=== PATIENT | male | born 1965 | race Caucasian/White ===

== ENCOUNTER 2019-11-04 14:13 | Emergency (ER) | payer BC, OTHER ==
[~2019-11-04] VITALS: Ht 182 cm; Wt 77.2 kg
[2019-11-04] MEDS ORDERED: LIDOCAINE UROJET 2% GEL 10 ML PKG ONE (14:30)
--- NOTE | 2019-11-04 14:41 | ED GU-Female ---
General Chief Complaint: - Urinary Stated Complaint: TROUBLE URINATING Nursing Triage Note: SENT OUT HERE BY THE COMPANY DR GRAYSON TO PT HAVING TROUBLE PEEING FOR OVER A MONTH ALONG WITH N/V. PT STATES HE NEVER GOES TO THE DR SO HE HAS NO PAST MEDICAL HISTORY. Nursing Sepsis Screen: No Definite Risk Source: patient Exam Limitations: no limitations History of Present Illness Date Seen by Provider: Nov 04, 2019 Time Seen by Provider: 14:38 Initial Comments To ER per private vehicle from [facility] urgent care, he was at work at [employer] seeing their mobile van with reports of lower abdominal pain. He's had lower abdominal pain for about 6 months, worse since September. He frequently is awake at night to urinate, has had some urinary incontinence after he feels as though he is finished urinating. He's also had some intermittent vomiting. He denies any upper abdominal pain. He was noted to have a distended lower abdomen concern for urinary retention. Timing/Duration: constant Severity/Quality: moderate Location: suprapubic Radiation: none Activities at Onset: none Prior Genitourinary Problems: none Associated Symptoms: nausea/vomiting, urinary frequency Allergies and Home Medications Allergies Coded Allergies: No Known Drug Allergies (Unverified , 11/04/19) Home Medications No Active Prescriptions or Reported Meds Patient Home Medication List Home Medication List Reviewed: Yes Review of Systems Review of Systems Constitutional: see HPI EENTM: see HPI Respiratory: no symptoms reported Cardiovascular: no symptoms reported Genitourinary: see HPI Musculoskeletal: no symptoms reported Skin: no symptoms reported Psychiatric/Neurological: No Symptoms Reported Endocrine: No Symptoms Reported Hematologic/Lymphatic: No Symptoms Reported Past Zigfadr-Xrzkni-Mfienk Hx Patient Social History Alcohol Use: Occasionally Uses Recreational Drug Use: Yes Drug of Choice: POT Smoking Status: Current Everyday Smoker Recent Foreign Travel: No Contact w/Someone Who Travel: No Recent Infectious Disease Expo: No Recent Hopitalizations: No Seasonal Allergies Seasonal Allergies: No Past Medical History Surgeries: No Respiratory: No Cardiac: No Neurological: No Genitourinary: No Gastrointestinal: No Musculoskeletal: Yes Fractures Endocrine: No HEENT: No Cancer: No Psychosocial: No Integumentary: No Physical Exam Vital Signs Vital Signs - First Documented 11/04/19 14:21 Temp 36.5 Pulse 83 Resp 16 B/P (MAP) 170/85 (113) Pulse Ox 98 O2 Delivery Room Air Capillary Refill : Less Than 3 Seconds Height, Weight, BMI Height: '" Weight: lbs. oz. kg; 23.00 BMI Method: General Appearance: WD/WN, no apparent distress HEENT: PERRL/EOMI, normal ENT inspection Neck: non-tender, full range of motion Respiratory: no respiratory distress, no accessory muscle use Gastrointestinal: normal bowel sounds, soft, other (suprapubic distention tenderness to palpation.) Extremities: normal range of motion, non-tender Neurologic/Psychiatric: alert, normal mood/affect, oriented x 3 Progress/Results/Core Measures Suspected Sepsis Recent Fever Within 48 Hours: No Infection Criteria Present: Suspected New Infection New/Unexplained Altered Menta: No Sepsis Screen: No Definite Risk SIRS Temperature: Pulse: 83 Respiratory Rate: 16 Laboratory Tests 11/04/19 14:44: White Blood Count 11.5H Blood Pressure 170 /85 Mean: 113 Laboratory Tests 11/04/19 14:44: Creatinine 3.76H, INR Comment 0.9, Platelet Count 278, Total Bilirubin 0.4 Results/Orders Lab Results Laboratory Tests Test 11/04/19 14:44 11/04/19 15:06 Range/Units White Blood Count 11.5 H 4.3-11.0 10^3/uL Red Blood Count 3.66 L 4.35-5.85 10^6/uL Hemoglobin 11.2 L 13.3-17.7 G/DL Hematocrit 34 L 40-54 % Mean Corpuscular Volume 92 80-99 FL Mean Corpuscular Hemoglobin 31 25-34 PG Mean Corpuscular Hemoglobin Concent 33 32-36 G/DL Red Cell Distribution Width 12.9 10.0-14.5 % Platelet Count 278 130-400 10^3/uL Mean Platelet Volume 9.4 7.4-10.4 FL Neutrophils (%) (Auto) 76 H 42-75 % Lymphocytes (%) (Auto) 13 12-44 % Monocytes (%) (Auto) 10 0-12 % Eosinophils (%) (Auto) 1 0-10 % Basophils (%) (Auto) 0 0-10 % Neutrophils # (Auto) 8.8 H 1.8-7.8 X 10^3 Lymphocytes # (Auto) 1.5 1.0-4.0 X 10^3 Monocytes # (Auto) 1.2 H 0.0-1.0 X 10^3 Eosinophils # (Auto) 0.1 0.0-0.3 10^3/uL Basophils # (Auto) 0.0 0.0-0.1 10^3/uL Prothrombin Time 13.0 12.2-14.7 SEC INR Comment 0.9 0.8-1.4 Sodium Level 138 135-145 MMOL/L Potassium Level 4.2 3.6-5.0 MMOL/L Chloride Level 104 98-107 MMOL/L Carbon Dioxide Level 22 21-32 MMOL/L Anion Gap 12 5-14 MMOL/L Blood Urea Nitrogen 36 H 7-18 MG/DL Creatinine 3.76 H 0.60-1.30 MG/DL Estimat Glomerular Filtration Rate 17 BUN/Creatinine Ratio 10 Glucose Level 99 70-105 MG/DL Calcium Level 9.2 8.5-10.1 MG/DL Corrected Calcium 9.0 8.5-10.1 MG/DL Total Bilirubin 0.4 0.1-1.0 MG/DL Aspartate Amino Transf (AST/SGOT) 13 5-34 U/L Alanine Aminotransferase (ALT/SGPT) 8 0-55 U/L Alkaline Phosphatase 73 40-136 U/L Total Protein 7.1 6.4-8.2 GM/DL Albumin 4.3 3.2-4.5 GM/DL Urine Color YELLOW Urine Clarity CLEAR Urine pH 5.5 5-9 Urine Specific Henderson <=1.005 1.016-1.022 Urine Protein NEGATIVE NEGATIVE Urine Glucose (UA) NEGATIVE NEGATIVE Urine Ketones NEGATIVE NEGATIVE Urine Nitrite NEGATIVE NEGATIVE Urine Bilirubin NEGATIVE NEGATIVE Urine Urobilinogen 0.2 < = 1.0 MG/DL Urine Leukocyte Esterase NEGATIVE NEGATIVE Urine RBC (Auto) NEGATIVE NEGATIVE Urine RBC NONE /HPF Urine WBC NONE /HPF Urine Squamous Epithelial Cells NONE /HPF Urine Crystals NONE /LPF Urine Bacteria NEGATIVE /HPF Urine Casts NONE /LPF Urine Mucus NEGATIVE /LPF Urine Culture Indicated NO My Orders Orders - PIEDAD HOYOS APRN Lidocaine 2% (Urojet) (Xylocaine Urojet) (11/04/19 14:30) Ua Culture If Indicated (11/04/19 14:36) Cbc With Automated Diff (11/04/19 14:36) Comprehensive Metabolic Panel (11/04/19 14:36) Protime With Inr (11/04/19 14:36) Ed Iv/Invasive Line Start (11/04/19 14:36) Lorazepam Injection (Ativan Injection) (11/04/19 14:45) Lidocaine 2% (Urojet) (Xylocaine Urojet) (11/04/19 14:45) Guzman Cath (11/04/19 14:36) Iohexol Injection (Omnipaque 350 Mg/Ml 1 (11/04/19 15:30) Received Contrast (Hold Metformin- Contr (11/04/19 15:30) Ct Abd/Pelvis Wo(Kidney Stone) (11/04/19 15:20) Medications Given in ED Current Medications Medications Dose Ordered Sig/Angelina Route Start Time Stop Time Status Last Admin Dose Admin Lidocaine HCl 10 ml ONCE ONCE TOP 11/04/19 14:45 11/04/19 14:46 DC 11/04/19 14:47 10 ML Lorazepam 0.25 mg ONCE PRN IVP 11/04/19 14:45 11/04/19 14:51 0.25 MG Vital Signs/I&O 11/04/19 14:21 Temp 36.5 Pulse 83 Resp 16 B/P (MAP) 170/85 (113) Pulse Ox 98 O2 Delivery Room Air Capillary Refill : Less Than 3 Seconds Blood Pressure Mean: 113 Departure Communication (Admissions) 2500 cc of clear yellow urine was removed from the bladder after catheter insertion 1550-discussed with Dr. Mcadams, recommends Gatorade for hydration as he may experience some diaphoresis this point. Watch for hematuria and return to ER for that. Leave the catheter in place and follow up with Dr. Mcadams tomorrow 11:15 AM. Impression Primary Impression: Urinary retention Additional Impression: Renal failure Qualified Codes: N19 - Unspecified kidney failure Disposition: HOME, SELF-CARE Condition: Stable Departure-Patient Inst. Decision time for Depature: 15:36 Referrals: NO,LOCAL PHYSICIAN (PCP) Primary Care Physician MADIE MCADAMS MD Patient Instructions: Urinary Retention Add. Discharge Instructions: 1. Leave the catheter in place. Draining this as we have shown how to whenever he gets full. Drink Gatorade in the meantime to help maintain your electrolytes. Try to get at least 2 bottles in tonight. If you notice any obviously bloody ur ine. Need to return to the emergency room. Otherwise plan on seeing Dr. Mcadams tomorrow at 11:15 AM. All discharge instructions reviewed with patient and/or family. Voiced understanding. Scripts No Active Prescriptions or Reported Meds Copy Copies To 1: MADIE MCADAMS MD, PETER J APRN Nov 04, 2019 14:41
[2019-11-04] MEDS ORDERED: LIDOCAINE UROJET 2% GEL 10 ML PKG TOP ONE (14:45)
[2019-11-04] MEDS ORDERED: LORazepam INJ 2 MG/ML (ATIVAN) VIAL IVP PRN (14:45)
[2019-11-04 14:53] LABS: BASOPHILS % (AUTO) 0 % (0-10); EOSINOPHILS # (AUTO) 0.1 10^3/uL (0.0-0.3); EOSINOPHILS % (AUTO) 1 % (0-10); HEMATOCRIT 34 % (40-54); HEMOGLOBIN 11.2 G/DL (13.3-17.7); LYMPHOCYTES # (AUTO) 1.5 X 10^3 (1.0-4.0); LYMPHOCYTES % (AUTO) 13 % (12-44); MEAN CORPUSCULAR HEMOGLOBIN 31 PG (25-34); MEAN CORPUSCULAR HGB CONC 33 G/DL (32-36); MEAN CORPUSCULAR VOLUME 92 FL (80-99); MEAN PLATELET VOLUME 9.4 FL (7.4-10.4); MONOCYTES # (AUTO) 1.2 X 10^3 (0.0-1.0); MONOCYTES % (AUTO) 10 % (0-12); NEUTROPHILS # (AUTO) 8.8 X 10^3 (1.8-7.8); NEUTROPHILS % (AUTO) 76 % (42-75); PLATELET COUNT 278 10^3/uL (130-400); RED CELL DISTRIBUTION WIDTH 12.9 % (10.0-14.5); WHITE BLOOD COUNT 11.5 10^3/uL (4.3-11.0)
[2019-11-04 15:11] LABS: INR 0.9 (0.8-1.4)
[2019-11-04 15:18] LABS: BILIRUBIN,URINE NEGATIVE (NEGATIVE); CLARITY,URINE CLEAR; COLOR,URINE YELLOW; GLUCOSE, URINE (UA) NEGATIVE (NEGATIVE); KETONES,URINE NEGATIVE (NEGATIVE); LEUKOCYTE ESTERASE ,URINE NEGATIVE (NEGATIVE); NITRITE,URINE NEGATIVE (NEGATIVE); PH,URINE 5.5 (5-9); PROTEIN,URINE NEGATIVE (NEGATIVE)
[2019-11-04 15:18] LABS: ALBUMIN 4.3 GM/DL (3.2-4.5); BILIRUBIN,TOTAL 0.4 MG/DL (0.1-1.0); CALCIUM 9.2 MG/DL (8.5-10.1); CREATININE SERUM 3.76 MG/DL (0.60-1.30); POTASSIUM 4.2 MMOL/L (3.6-5.0); TOTAL PROTEIN 7.1 GM/DL (6.4-8.2)
[2019-11-04 15:25] LABS: BACTERIA,URINE NEGATIVE /HPF
[2019-11-04] MEDS ORDERED: HOLD METFORMIN - RECEIVED CONTRAST 20 ML VIAL IV SCH (15:30)
[2019-11-04] MEDS ORDERED: IOHEXOL 350 MG/ML 100 ML (OMNIPAQUE 350) VIAL IV ONE (15:30)
--- NOTE | 2019-11-04 16:35 | Diagnostic Imaging Report ---
PROCEDURE: CT urinary tract, rule out kidney stone. TECHNIQUE: Multiple contiguous axial images were obtained through the abdomen and pelvis without the use of intravenous contrast. Auto Exposure Controls were utilized during the CT exam to meet ALARA standards for radiation dose reduction. DATE: November 04, 2019. COMPARISON: None. INDICATION: 54-year-old male, difficulty urinating. FINDINGS: There are limitations for evaluation of the abdominal organs, neoplastic processes, abscess, and limited evaluation of the vasculature relating to the lack of intravenous contrast. The visualized portions of the lung bases are clear. The heart is not enlarged. There is no pericardial effusion. The liver is normal in size and contour. There is a low-attenuation lesion in the inferior aspect of the right lobe of the liver on axial image 70, measuring 5 mm in size, which is too small to characterize. The gallbladder is unremarkable. There is no intrahepatic or extrahepatic bile duct dilation. The main pancreatic duct is not abnormally dilated. Noncontrast evaluation of the pancreatic parenchyma is unremarkable. The spleen is normal in size. The adrenal glands are unremarkable. There is a Guzman catheter within the urinary bladder. The urinary bladder is collapsed and not well evaluated. There is moderate bilateral hydroureteronephrosis. There is no identified renal or ureteral stone. There are pelvic calcifications external to the ureters consistent with phleboliths. The appendix is normal. The intestinal tract is not distended. There is no free intraperitoneal air. There is no drainable fluid collection. There is no free pelvic fluid. There are atherosclerotic calcifications. There is no identified abnormally enlarged lymph node in the abdomen or pelvis which meets CT size criteria for adenopathy. There is grade 1 retrolisthesis of L5 on S1. There is no acute bony abnormality. IMPRESSION: CT abdomen and pelvis: 1. Moderate bilateral hydroureteronephrosis. No identified renal or ureteral stone. 2. There is a Guzman catheter within a collapsed urinary bladder. The urinary bladder is otherwise not well evaluated. Dictated by: Dictated on workstation # [id number]
[2019-11-04 17:07] VITALS: BP 151/100
--- NOTE | 2019-11-04 17:07 | NUR ---
Pt DC'd with urinary hernandez catheter attatched to leg bag. Voices no questions or concerns after teach back method.
== END 2019-11-04 17:07 | disposition home or self-care (01) ==
LOC: EDUNIT# 14:13 → ER 14:14
DX: N19 Unspecified kidney failure (principal); F17.200 Nicotine dependence, unspecified, uncomplicated
CPT/HCPCS: 36415; 51702; 74176; 80053; 81000; 85025; 85610; 96374

== ENCOUNTER → 2019-11-30 | Outpatient (CLI) | payer OTHER ==
--- NOTE | 2019-11-30 11:01 | Diagnostic Imaging Report ---
INDICATION: Renal injury, hypertension. Recent demonstration of moderate bilateral hydroureteronephrosis. TECHNIQUE: Multiple real-time grayscale sonographic images, color and duplex Doppler images were obtained of the urinary system. FINDINGS: Aortic velocity: 87.1 cm/sec. RIGHT kidney: Size: 10.7 x 4.9 x 4.8 cm The right renal parenchyma and collecting system appear unremarkable. The right renal artery is visualized in its proximal, mid and distal aspect. Maximum renal artery velocity: 61.5cm/sec Maximum renal artery/aortic ratio: 0.71 LEFT kidney: Size: 10.7 x 5.2 x 4.8 cm The left renal parenchyma and collecting system appear unremarkable. The left renal artery is visualized in its proximal, mid and distal aspect. Maximum renal artery velocity: 156cm/sec Maximum renal artery/aortic ratio: 1.79 Bladder: Not imaged. IMPRESSION: 1. Unremarkable renal ultrasound with doppler. 2. The previously demonstrated rather significant bilateral hydroureteronephrosis is not well appreciated on this current study. (RA/AO ratios > 3.0 may suggest potential hemodynamically significant stenosis.) Dictated by: Dictated on workstation # [id number]
== END ==
LOC: RAD 07:58
PROVIDERS: ATTEND Family Medicine
DX: S35.403A Unspecified injury of unspecified renal artery, initial encounter (principal); I10 Essential (primary) hypertension; N13.9 Obstructive and reflux uropathy, unspecified
CPT/HCPCS: 76770; 93975